=== PATIENT | male | born 1965 | race Caucasian/White ===

== ENCOUNTER 2017-07-05 11:22 | Day surgery (SDC) | payer MEDICAID, SELFPAY ==
[2017-07-05 12:00] VITALS: BP 135/83; PULSE 60; RESP 16; TEMP 36.8; O2SAT 100; BMI 26.4
[2017-07-05 12:01] LABS: Bedside Glucose 79 mg/dL (70-110)
[2017-07-05 14:17] VITALS: BP 135/83; BP 145/94; PULSE 63; RESP 16; TEMP 37; O2SAT 100
[2017-07-05 14:22] VITALS: BP 135/83; BP 159/90; PULSE 61; RESP 16; O2SAT 100
[2017-07-05 14:27] VITALS: BP 135/83; BP 164/85; PULSE 60; RESP 16; O2SAT 100
[2017-07-05 14:30] LABS: Bedside Glucose 60 mg/dL (70-110)
[2017-07-05 14:32] VITALS: BP 135/83; BP 163/99; PULSE 64; RESP 16; TEMP 36.8; O2SAT 100
[2017-07-05 14:55] VITALS: BP 135/83
--- NOTE | 2017-07-10 09:06 | OP.PCM_ITS ---
Report of Operation Date of Procedure: 07/05/17 Pre-Operative Diagnosis: screening for colon cancer Post-Operative Diagnosis: same Surgery/Procedure Performed:: colonoscopy Description of Surgical Findings:: normal colon Type of Anesthesia:: MAC Anesthesiologist: Kemal Evangelista Specimen's removed: none Estimated Blood Loss (mL): none Fluids Replaced: see anesthesia note Description of Procedure: Patient presents for screening for colon cancer via colonoscopy. He states that he never has had a colonoscopy previously. After informed consent was given, the patient was brought to the endoscopy suite and placed in the supine position. Appropriate time out protocol was followed. Appropriate cardiac, blood pressure, and pulse oximetry monitoring was placed. After stable vital signs were noted, the patient was given intravenous conscious sedation. The patient was then placed in the left lateral decubitis position. The colonoscope was lubricated and carefully inserted into the patient?s anus. It was then advanced into the rectum, then into the sigmoid colon, then into the left descending colon, past the splenic flexure, into the transverse colon, past the hepatic flexure, then down into the right descending colon and into the cecum. The cecum was identified by: confluence of the tenae coli, identification of the ileocecal valve and appendiceal orifice, and external pressure with indentation. At this point, the colonoscope was slowly retracted back and the entire colonic mucosa was examined. The colon cleansing preparation was adequate. There was no evidence of extrinsic compression and no inflammatory changes were noted. No intraluminal obstructing lesions, no strictures, and no ulcers were noted. Retroflex view in the rectum revealed no lesions in the rectal vault. The colonoscope was removed intact. No complications were noted during the procedure. Recommendations: screening colonoscopy in 10 years - Complications none noted - Admit VTE Documentation VTE Present on Admission: No - low risk procedure for DVT/PE
== END 2017-07-05 14:55 | disposition home or self-care (01) ==
LOC: EN 11:22 → AC 11:25
PROVIDERS: Family Provider Family Medicine; PCP Family Medicine; Visit Provider Surgery
PROC: 0DJD8ZZ Inspection of Lower Intestinal Tract, Via Natural or Artificial Opening Endoscopic (ICD-10-PCS; CPT 45378; principal; 2017-07-05 12:40)
DX: Z12.11 Encounter for screening for malignant neoplasm of colon (principal); I10 Essential (primary) hypertension; G47.30 Sleep apnea, unspecified; F31.9 Bipolar disorder, unspecified; F32.9 Major depressive disorder, single episode, unspecified; F41.0 Panic disorder [episodic paroxysmal anxiety]; E78.00 Pure hypercholesterolemia, unspecified; K21.9 Gastro-esophageal reflux disease without esophagitis; Z79.82 Long term (current) use of aspirin; Z79.899 Other long term (current) drug therapy; Z95.810 Presence of automatic (implantable) cardiac defibrillator; E11.9 Type 2 diabetes mellitus without complications; Z79.84 Long term (current) use of oral hypoglycemic drugs
CPT/HCPCS: 45378; 82962; J7120; J2405

== ENCOUNTER 2018-01-13 15:32 | Emergency (ER) | payer MEDICAID, SELFPAY ==
[2018-01-13 15:33] VITALS: BP 151/95; PULSE 71; RESP 16; TEMP 37.5; O2SAT 100; BMI 26.7
--- NOTE | 2018-01-13 15:43 | EKG12_ITS ---
Test Reason : CHEST TIGHTNESS Blood Pressure : / mmHG Vent. Rate : 066 BPM Atrial Rate : 066 BPM P-R Int : 176 ms QRS Dur : 110 ms QT Int : 416 ms P-R-T Axes : 072 144 078 degrees QTc Int : 436 ms Normal sinus rhythm Normal ECG Confirmed by ALIYAH ROCHE, MYNOR ([id number]), rewrite editor LOREN MERCADO ([id number] on 01/15/2018 10:14:50 AM Referred By: CASSIE/RACHEL Confirmed By:MYNOR LY MD
--- NOTE | 2018-01-13 16:10 | RAD_ITS ---
STUDY: X-RAY CHEST REASON FOR EXAM: Male, 52 years old. Chest pain TECHNIQUE: Frontal and lateral views of the chest COMPARISON: 02/25/2016 FINDINGS: The lungs are clear. There are no pleural effusions. There is no pneumothorax. The heart is normal in size. Again noted is a pacemaker. The visualized osseous structures are within normal limits. RAD/Chest PA and Lateral IMPRESSION: No acute thoracic pathology. Electronically Signed: Presley Whitlock, at 16:32 EDT Tel , Service support ,
--- NOTE | 2018-01-13 16:10 | RAD_ITS ---
STUDY: X-RAY - CERVICAL SPINE REASON FOR EXAM: Male, 52 years old. Pain TECHNIQUE: 3 view(s) of the cervical spine were obtained. COMPARISON: None FINDINGS: There is no evidence of fracture or dislocation in the cervical spine. The dens is intact. There are moderate degenerative changes which are more pronounced in the lower cervical spine. The prevertebral soft tissues are unremarkable. There is no radiodense foreign body. RAD/Cerv Spine 2 or 3 Views IMPRESSION: No fracture or dislocation in the cervical spine. Moderate degenerative changes which are more pronounced in the lower cervical spine. Electronically Signed: Presley Whitlock, at 16:34 EDT Tel , Service support ,
[2018-01-13] MEDS: diazePAM 5 MG Tablet PO (16:18)
[2018-01-13 16:50] VITALS: BP 169/97; PULSE 76; RESP 16; O2SAT 99
--- NOTE | 2018-01-13 17:53 | ED.VISSUMM ---
- ER Visit Summary Date of Service: 01/13/18 Chief Complaint: The chief complaint is chest pain, however patient is complaining of left shoulder and back pain. History of Present Illness: The patient is a 52 M with above complaints for about 2-3 days. Unknown mechanism of injury, but he has quite a bit of pain when he moves his arm, he is quite a bit of thoracic and lower neck spasms. No midline neck pain. No injury. He has no loss of strength or paresthesias. No bowel or bladder compromise. Pain is minimal when at rest but worse with movement of the neck, or shoulder. Physical Examination: Not appear in acute distress. Moist mucous membranes, no obvious facial deformity No C-spine tenderness supple neck. He does have paraspinal neck spasm and tenderness with movement Regular rate and rhythm without any obvious murmurs. Pacemaker on the left noticed. Clear lungs bilaterally speaking in full sentences without any obvious respiratory distress Abdomen soft and nontender no guarding or rebound He has trapezius spasm as well as tenderness in the posterior shoulder region, quite reproducible and mechanical. Neurovascularly intact normal strength and sensation. Skin does not show any obvious rashes or lesions, no trauma. Alert oriented ?3 with no gross focal deficit Emergency Department Course and Treatment: X-ray of the C-spine and chest are unremarkable, patient has a pacemaker but may need further imaging of the C-spine at this time he does not have any neurological symptoms. He was given muscle relaxants with significant improvement I will discharge him with reassurance and medications. Discharge stable condition Impression: [Thoracic strain] This note was generated with [employer] dictation software. It may contain incorrect words, spelling, and punctuation that were not noted in review of the chart prior to signing ED Disposition - Plan for ED Patient: Disposition: Home or Assisted Living Chief Complaint: Other, Pain/Inj Instructions: ED Sprain Thoracic Spine Prescriptions: Cyclobenzaprine [Flexeril] 10 mg PO TID PRN #20 tab PRN Reason: Muscle Spasm Referrals: Michael Solis MD [Primary Care Provider] - 3-5 Days
--- NOTE | 2018-01-13 17:57 | ED.DCSUM_ITS ---
- ER Visit Summary Date of Service: 01/13/18 Chief Complaint: The chief complaint is chest pain, however patient is complaining of left shoulder and back pain. History of Present Illness: The patient is a 52 M with above complaints for about 2-3 days. Unknown mechanism of injury, but he has quite a bit of pain when he moves his arm, he is quite a bit of thoracic and lower neck spasms. No midline neck pain. No injury. He has no loss of strength or paresthesias. No bowel or bladder compromise. Pain is minimal when at rest but worse with movement of the neck, or shoulder. Physical Examination: Not appear in acute distress. Moist mucous membranes, no obvious facial deformity No C-spine tenderness supple neck. He does have paraspinal neck spasm and tenderness with movement Regular rate and rhythm without any obvious murmurs. Pacemaker on the left noticed. Clear lungs bilaterally speaking in full sentences without any obvious respiratory distress Abdomen soft and nontender no guarding or rebound He has trapezius spasm as well as tenderness in the posterior shoulder region, quite reproducible and mechanical. Neurovascularly intact normal strength and sensation. Skin does not show any obvious rashes or lesions, no trauma. Alert oriented ?3 with no gross focal deficit Emergency Department Course and Treatment: X-ray of the C-spine and chest are unremarkable, patient has a pacemaker but may need further imaging of the C- spine at this time he does not have any neurological symptoms. He was given muscle relaxants with significant improvement I will discharge him with reassurance and medications. Discharge stable condition Impression: [Thoracic strain] This note was generated with [employer] dictation software. It may contain incorrect words, spelling, and punctuation that were not noted in review of the chart prior to signing ED Disposition - Plan for ED Patient: Disposition: Home or Assisted Living Chief Complaint: Other, Pain/Inj Instructions: ED Sprain Thoracic Spine Prescriptions: Cyclobenzaprine [Flexeril] 10 mg PO TID PRN #20 tab PRN Reason: Muscle Spasm Referrals: Michael Solis MD [Primary Care Provider] - 3-5 Days
--- NOTE | 2018-01-13 17:59 | ED.DEP ---
ED Disposition - Plan for ED Patient: Disposition: Home or Assisted Living Chief Complaint: Other, Pain/Inj Instructions: ED Sprain Thoracic Spine Prescriptions: Cyclobenzaprine [Flexeril] 10 mg PO TID PRN #20 tab PRN Reason: Muscle Spasm Referrals: Michael Solis MD [Primary Care Provider] - 3-5 Days
[2018-01-13 18:14] VITALS: BP 149/88; PULSE 67; RESP 18; O2SAT 99
== END 2018-01-13 18:15 | disposition home or self-care (01) ==
PROVIDERS: Emergency Provider Emergency Medicine; Family Provider Family Medicine; PCP Family Medicine
DX: S29.012A Strain of muscle and tendon of back wall of thorax, initial encounter (principal); X58.XXXA Exposure to other specified factors, initial encounter; Y93.9 Activity, unspecified; Y92.9 Unspecified place or not applicable; M25.512 Pain in left shoulder; R07.9 Chest pain, unspecified; I10 Essential (primary) hypertension; E11.9 Type 2 diabetes mellitus without complications; Z79.84 Long term (current) use of oral hypoglycemic drugs; Z79.82 Long term (current) use of aspirin; Z79.899 Other long term (current) drug therapy
CPT/HCPCS: 71046; 72040; 93005; 99283

== ENCOUNTER 2021-11-13 06:47 | Emergency (ER) | payer BC, MEDICAID, SELFPAY ==
[2021-11-13 06:48] VITALS: BP 153/90; PULSE 88; RESP 18; TEMP 36.8; O2SAT 98; BMI 29.7
--- NOTE | 2021-11-13 07:02 | EKG12_ITS ---
Test Reason : FATIGUE Blood Pressure : / mmHG Vent. Rate : 079 BPM Atrial Rate : 079 BPM P-R Int : 188 ms QRS Dur : 108 ms QT Int : 398 ms P-R-T Axes : 066 118 054 degrees QTc Int : 456 ms Normal sinus rhythm Normal ECG Confirmed by ALIYAH ROCHE, MYNOR ([id number]), supervising editor trailer EFRAIN MACK ([id number]) on 11/14/2021 1:30:14 PM Referred By: BB Confirmed By:MYNOR LY MD
--- NOTE | 2021-11-13 07:02 | RAD_ITS ---
STUDY: X-RAY CHEST REASON FOR EXAM: Male, 56 years old. Cough sob TECHNIQUE: Single AP portable view of the chest. COMPARISON: Comparison is made with prior examination dated 01/13/2018. FINDINGS: Patchy infiltrate in the right lower lobe. Mild increased markings at the left lung base. There is no demonstrated pleural abnormality. Normal size heart. A left-sided dual-chamber pacemaker is seen. Normal mediastinum and kunal. Normal visualized pulmonary arteries. Normal visualized aortic arch and descending thoracic aorta. There are degenerative changes of the visualized thoracic spine. Normal visualized ribs, clavicles, and shoulders. There is no demonstrated abnormality of the visualized soft tissue structures of the upper abdomen. RAD/Chest 1 View (Portable) IMPRESSION: Bibasilar pulmonary infiltrates worse on the right lung base. Electronically Signed: Mack Bell MD at 8:04 EDT ,
--- NOTE | 2021-11-13 07:04 | CT_ITS ---
EXAM: CT HEAD WITHOUT INTRAVENOUS CONTRAST CLINICAL INDICATION: dysequilibrium, headache TECHNIQUE: Multiple axial images were obtained of the head without intravenous contrast. This CT exam was performed using one or more of the following dose reduction techniques: automated exposure control, adjustment of the mA and/or kV according to patient size, and/or use of iterative reconstruction technique. This report was created using [employer] report generation technology. COMPARISON: 02/25/2016 FINDINGS: BRAIN AND EXTRA-AXIAL SPACES: Unremarkable. No intra- or extra-axial hemorrhage. No evidence of acute infarct. No intracranial mass or mass effect. There is preservation of the yang/white matter interface. Posterior fossa structures are unremarkable. Ventricles are appropriate for age. No hydrocephalus. Basal cisterns are patent. BONES/JOINTS: Unremarkable. No discrete lytic or blastic abnormalities. SINUSES: Unremarkable as visualized. Clear. MASTOID AIR CELLS: Unremarkable. Clear. ORBITS: Visualized globes, extraocular muscles, optic nerves and retrobulbar fat appear unremarkable. CT/Brain/Head without Contrast IMPRESSION: Negative head/brain CT without intravenous contrast. There has been no change from reference exam. Electronically Signed: Renzo Colón MD at 8:06 EDT ,
[2021-11-13] MEDS: 0.9% Normal Saline 1,000 ML 150 ML IV (07:05)
--- NOTE | 2021-11-13 07:05 | EX.ED.DYSGE1 ---
HPI History of Present Illness Chief Complaint: Fatigue Informant: patient Onset/Context/Timing Onset: Days (3) Context: Gradual Onset Timing: Continuous Quality: fatigue Location: all over Current Severity: Severe Maximum Severity: Severe Worsened by: doing things Relieved by: nothing Associated Symptoms Associated Symptoms: see below Associated Symptoms ED: cough Narrative Narrative: Patient presents with about 3 days of generalized fatigue, myalgias/arthralgias, dyspnea at times including exertion, minor cough, disequilibrium like he is off balance, in addition to lightheadedness, and a headache. He states he works at [employer] in [employer]. No contact with [employer] that he knows of which has been around lately, he is vaccinated and boosted. He states he is scheduled for an upcoming liver biopsy because he has stage III or IV hepatic fibrosis and he has never had a biopsy of it, he has not been diagnosed with cirrhosis; in preparation for the biopsy, he states he has paused some medications including his aspirin and diabetes medication. He denies any jaundice, abdominal pain, vomiting, diarrhea, he was concerned may be some pizza that he ate near the time of onset might of been the cause of this. He is feeling no better today on Saturday so he presents to the emergency department. [facility] Medical History (Updated 11/13/21 @ 13:[address] Kt Salgado MD) Depression Diabetes type 2, uncontrolled HTN (hypertension) Hyperlipidemia Home Medications losartan 50 mg PO BID 10/25/15 [History Last Taken 07/05/17 07:30] omega-3 fatty acids-fish oil 2 ea PO BID 10/25/15 [History Last Taken 11/28/15 06:00] pantoprazole 40 mg PO DAILY 10/25/15 [History Last Taken 07/05/17 07:30] finasteride 5 mg PO QHS 11/28/15 [History Last Taken 07/05/17 07:30] aspirin 81 mg PO DAILY@0800 02/18/16 [History Last Taken Unknown] alogliptin 25 mg PO DAILY 05/22/17 [History Last Taken Unknown] citalopram [Celexa] 20 mg PO QHS 05/22/17 [History Last Taken 07/05/17 07:30] lamotrigine [Lamictal] 75 mg PO DAILY 05/22/17 [History Last Taken 07/05/17 07:30] metformin 500 mg PO DAILY 05/22/17 [History Last Taken Unknown] cyclobenzaprine 10 mg PO TID PRN #20 tab 01/13/18 [Rx Last Taken Unknown] levofloxacin 750 mg PO DAILY #4 tab 11/13/21 [Rx Last Taken Unknown] Allergy/AdvReac Type Severity Reaction Status Date / Time propofol Allergy PROJECTILE Verified 01/13/18 16:06 VOMITING simvastatin Allergy Unknown Verified 01/13/18 16:06 lisinopril AdvReac CONGESTION Verified 01/13/18 16:06 Surgical History Status post placement of cardiac pacemaker Social History Smoking Status: Never smoker ROS ROS ED Constitutional Constitutional ED: Reports body ache(s), fatigue, headache(s) and malaise; Denies chills or fever(s) Eyes Eyes: Denies change in vision or diplopia ENT ENT ED: Denies rhinorrhea or sore throat Cardiovascular Cardiovascular: Reports fatigue and lightheadedness; Denies chest pain or palpitations Respiratory/Chest Respiratory/Chest: Reports cough, dyspnea and dyspnea on exertion Gastrointestinal Gastrointestinal: Denies abdominal pain, diarrhea, nausea or vomiting Genitourinary Genitourinary ED: Denies dysuria or hematuria Musculoskeletal Musculoskeletal: Reports arthralgias, myalgias and other Details: Patient states his joints hurt mostly his right elbow and wrist ; Denies back pain or neck pain Integumentary Denies abscess or rash Neurologic Neurologic: Reports headache(s); Denies paresthesias or weakness Psychiatric Psychiatric: Denies anxiety or suicidal thoughts Endocrine Endocrinology: Reports polyuria; Denies heat intolerance or palpitations EXAM Physical Exam Const Vital Signs: 11/13/21 06:48 11/13/21 06:57 11/13/21 08:43 Temperature 98.2 F Temperature Source Oral Pulse Rate 88 76 Respiratory Rate 18 25 H Respiratory Effort Normal Non-Labored Respiratory Pattern Normal Blood Pressure 153/90 H 142/84 H Blood Pressure Mean 111 103 Pulse Ox 98 98 Oxygen Delivery Method Room Air Room Air 11/13/21 10:00 11/13/21 10:59 11/13/21 12:00 Temperature Temperature Source Pulse Rate 72 69 67 Respiratory Rate 20 H 18 18 Respiratory Effort Respiratory Pattern Blood Pressure 129/80 H 123/76 H 128/76 H Blood Pressure Mean 96 91 93 Pulse Ox 97 96 97 Oxygen Delivery Method Room Air Room Air Room Air Positive well nourished and well developed Constitutional Narrative: Well-appearing, no distress General Appearance ED: well developed and NAD HEENT Reports moist mucous membranes normocephalic and atraumatic Eyes PERRL and EOMs intact bilaterally Neck full ROM, no lymphadenopathy, supple and no meningeal signs Resp normal respiratory effort and clear to auscultation bilaterally Effort and Inspection: able to speak in complete sentences Cardio regular rate, regular rhythm and no murmurs Rate: Negative for tachycardic GI non-tender and non-distended Auscultation: normoactive bowel sounds Palpation: soft Back/Spine no CVA tenderness General Back: other FROM Extremity normal to inspection and no calf tenderness General Extremety ED: Negative for edema, pulses abnormal or tenderness General Extremity: Negative for edema or pulses abnormal Neuro oriented x3, CN's II-XII intact bilaterally and no sensory deficits noted Sensorium / Orientation: awake and alert Motor Exam: strength 5/5 throughout Skin no rashes or lesions noted and no wounds MDM MDM MDM Narrative Medical decision making narrative: Patient's blood sugar is 733, along with PARVEEN, pseudohyponatremia, significant glycosuria. The rest of his labs are okay, his chest x-ray shows some patchy pneumonia, he is not hypoxic. I confirmed with the patient that he stopped his diabetes medicines and states he was pretty sure they told him to do this in preparation for his liver biopsy. His biopsy is the day after tomorrow. I discussed with Dr. Stanton, patient thought this was the GI doctor who told him to stop the medications but in actuality this is the physician at [facility] who is performing the procedure in 2 days, he states typically they have the patient cut their insulin dose in half and hold their oral diabetes medications only the morning of the procedure. I discussed this with the patient, I think he was confused on the instructions. I think this is the reason his blood sugar is so high. I gave him 30 units of insulin IV as well as 2 L of fluid, after this his blood sugar came down to the 300s, he felt much better and a lot of his symptoms resolved, suggesting hyperglycemia is the cause of his symptoms. Additionally, his 1 view chest x-ray on my interpretation appears to have a mild/small infiltrate in the right base, radiology agrees and additionally adds that he has small infiltrates in the left base as well. His COVID and influenza returned negative, he has been coughing and having some mild dyspnea, but his oxygenation is excellent. I will start him on Levaquin, his states she recently was diagnosed with walking pneumonia and now she is better and concerned maybe she gave it to him. I am not sure that is the case but regardless I do not think he needs to be admitted for this right now, will prescribe him 4 more days of Levaquin 750 and he will follow-up doing the instructions above as a [facility] for his biopsy coming up. After the insulin and monitoring, we got his blood sugar down. At 0950, 312. At 1100, 263. At 1220, 252. And now 230. We let him eat a couple cookies, he is feeling a lot better, and we discussed the instructions for his medications. Lab Data Attestation: I reviewed the patient's lab results. Labs: Laboratory Results - last 24 hr 11/13/21 11/13/21 11/13/21 07:00 07:00 07:00 WBC 8.8 RBC 5.24 Hgb 13.1 Hct 40.8 MCV 77.9 L MCH 25.0 L MCHC 32.1 RDW Std Deviation 39.4 RDW Coeff of Germán 14.1 Plt Count 270 MPV 10.9 Immature Gran % (Auto) 0.600 Neut % (Auto) 70.1 H Lymph % (Auto) 17.2 L Stokes % (Auto) 8.9 Eos % (Auto) 2.9 Baso % (Auto) 0.3 Absolute Neuts (auto) 6.2 Absolute Lymphs (auto) 1.52 Nucleated RBC % 0 Sodium 126 L Potassium 3.7 Chloride 92 L Carbon Dioxide 27.0 Anion Gap 7 BUN 20 H Creatinine 1.47 H Estim Creat Clear Calc 61.59 Est GFR (MDRD) Af Amer 64 Est GFR (MDRD) Non-Af 53 L BUN/Creatinine Ratio 13.6 Glucose 733 H* Calcium 8.7 Total Bilirubin 0.60 AST 39 H ALT 82 H Alkaline Phosphatase 192 H Troponin I High Sens < 3 L Total Protein 7.9 Albumin 3.1 L Globulin 4.8 H Albumin/Globulin Ratio 0.6 L Urine Color Yellow Urine Clarity Clear Urine pH 6.5 Ur Specific [place] 1.015 Urine Protein Negative Urine Glucose (UA) 1000 H Urine Ketones Negative Urine Occult Blood Negative Urine Nitrite Negative Urine Bilirubin Negative Urine Urobilinogen Normal Ur Leukocyte Esterase Negative Urine RBC 0 SEEN Urine WBC 0 SEEN Ur Squamous Epith Cells 0 SEEN Urine Bacteria 0 SEEN Urine Mucus 0 SEEN Acetone Level POC Glucose 11/13/21 11/13/21 11/13/21 09:49 10:58 12:22 WBC RBC Hgb Hct MCV MCH MCHC RDW Std Deviation RDW Coeff of Germán Plt Count MPV Immature Gran % (Auto) Neut % (Auto) Lymph % (Auto) Stokes % (Auto) Eos % (Auto) Baso % (Auto) Absolute Neuts (auto) Absolute Lymphs (auto) Nucleated RBC % Sodium Potassium Chloride Carbon Dioxide Anion Gap BUN Creatinine Estim Creat Clear Calc Est GFR (MDRD) Af Amer Est GFR (MDRD) Non-Af BUN/Creatinine Ratio Glucose Calcium Total Bilirubin AST ALT Alkaline Phosphatase Troponin I High Sens Total Protein Albumin Globulin Albumin/Globulin Ratio Urine Color Urine Clarity Urine pH Ur Specific [place] Urine Protein Urine Glucose (UA) Urine Ketones Urine Occult Blood Urine Nitrite Urine Bilirubin Urine Urobilinogen Ur Leukocyte Esterase Urine RBC Urine WBC Ur Squamous Epith Cells Urine Bacteria Urine Mucus Acetone Level POC Glucose 312 H 263 H 252 H 11/13/21 11/13/21 13:15 Unknown WBC RBC Hgb Hct MCV MCH MCHC RDW Std Deviation RDW Coeff of Germán Plt Count MPV Immature Gran % (Auto) Neut % (Auto) Lymph % (Auto) Stokes % (Auto) Eos % (Auto) Baso % (Auto) Absolute Neuts (auto) Absolute Lymphs (auto) Nucleated RBC % Sodium Potassium Chloride Carbon Dioxide Anion Gap BUN Creatinine Estim Creat Clear Calc Est GFR (MDRD) Af Amer Est GFR (MDRD) Non-Af BUN/Creatinine Ratio Glucose Calcium Total Bilirubin AST ALT Alkaline Phosphatase Troponin I High Sens Total Protein Albumin Globulin Albumin/Globulin Ratio Urine Color Urine Clarity Urine pH Ur Specific [place] Urine Protein Urine Glucose (UA) Urine Ketones Urine Occult Blood Urine Nitrite Urine Bilirubin Urine Urobilinogen Ur Leukocyte Esterase Urine RBC Urine WBC Ur Squamous Epith Cells Urine Bacteria Urine Mucus Acetone Level NEGATIVE POC Glucose 230 H Radiography Chest X-Ray - ED: 1 View, Read by ED Physician and Right Infiltrate Diagnostic Testing: Clinical Impression(s) from Imaging Studies Chest X-Ray 11/13/21 07:02 IMPRESSION: Bibasilar pulmonary infiltrates worse on the right lung base. Electronically Signed: Mack Bell MD at 8:04 EDT , Brain CT 11/13/21 07:04 IMPRESSION: Negative head/brain CT without intravenous contrast. There has been no change from reference exam. Electronically Signed: Renzo Colón MD at 8:06 EDT , Rhythm Strip Rhythm Strip: Sinus Rhythm Rate: 80 Ectopy: None EKG Initial EKG: Attestation: I personally reviewed and interpreted this EKG as follows: Interpretation: Sinus Rhythm and No Acute Injury Pattern Comments: Normal EKG Discharge Plan Triage Chief Complaint: Fatigue ED Provider: Kt Salgado Dx/Rx/DC Orders Clinical Impression: Severe hyperglycemia due to diabetes mellitus, Pneumonia Instructions: ED Diabetic Hyperglycemia, ED Pneumonia (Adult) Prescriptions: New levofloxacin 750 mg tablet 750 mg PO DAILY Qty: 4 RF: 0 Continued pantoprazole 40 MG tablet 40 mg PO DAILY RF: 0 losartan 100 MG tablet 50 mg PO BID RF: 0 omega-3 fatty acids-fish oil 1 EACH capsule 2 ea PO BID RF: 0 finasteride 5 MG tablet 5 mg PO QHS RF: 0 aspirin 81 MG tablet,chewable 81 mg PO DAILY@0800 RF: 0 cyclobenzaprine 10 MG tablet 10 mg PO TID PRN (Reason: Muscle Spasm) Qty: 20 RF: 0 lamotrigine [Lamictal] 25 MG tablet 75 mg PO DAILY RF: 0 alogliptin 25 MG tablet 25 mg PO DAILY RF: 0 metformin 500 MG tablet,ER luis.retention 24 hr 500 mg PO DAILY RF: 0 Held citalopram [Celexa] 20 MG tablet 20 mg PO QHS RF: 0 Hold Instructions: Resume on 11/22/21. while on antibiotic and for next 4-5 days due to possible interaction Primary Care Provider: Michael Solis Referrals: Michael Solis MD [Primary Care Provider] - 3-5 Days Activity Restrictions/Additional Instructions: Continue taking your diabetes medications as prescribed; the day after tomorrow when you have your biopsy, do not take your diabetes medications in the morning only due to not being allowed to eat prior to your procedure, BUT YOU MAY still take your metformin, it will not drop your blood sugar but will keep you from going high. Just with a sip of water. Disposition Disposition: Home, Self Care
[2021-11-13 07:18] LABS: Bacteria 0 SEEN /hpf (None Seen); Mucous, Urine 0 SEEN /hpf (<or=2+); Red Blood Cells-Urine 0 SEEN /hpf (0-5); Squamous Epithelial Cells - UA 0 SEEN /hpf (0-5); White Blood Cells 0 SEEN /hpf (0-5)
[2021-11-13 07:21] LABS: Absolute Lymphocyte Count 1.52 X10^3/uL (0.83-4.51); Absolute Neutrophil Count 6.2 X10^3/uL (2.0-7.7); Basophil# 0.03 X10^3/uL; Basophil% 0.3 % (0-1); Eosinophil# 0.26 X10^3/uL; Eosinophils% 2.9 % (0-5); Hematocrit 40.8 % (40-54); Hemoglobin 13.1 g/dL (13.0-16.5); Lymphocyte # 1.52 X10^3/ul (0.83-4.51); Lymphocyte % 17.2 % (19-41); Mean Corp Hgb Conc 32.1 g/dL (32-36); Mean Corpuscular Volume 77.9 fL (80-94); Mean Platelet Vol. 10.9 fl (6.2-12.0); Monocyte# 0.79 X10^3/uL; Monocyte% 8.9 % (0-10); NRBC Flagged by Analyzer 0 % (0-5); Neutrophil # 6.18 X10^3/uL (2.7-7.7); Neutrophil % 70.1 % (47-70); Platelet Count 270 K/mm3 (150-450); RBC Distribution Width CV 14.1 % (11.6-14.6); RBC Distribution Width SD 39.4 fl (35.1-43.9); Red Blood Count 5.24 M/mm3 (4.6-6.2); White Blood Count 8.8 K/mm3 (4.4-11.0)
--- NOTE | 2021-11-13 07:42 | ED.RN ---
PT BLOOD SUGAR 733 PER LAB
[2021-11-13 07:43] LABS: ALB/GLOB Ratio 0.6 RATIO (0.9-2.4); AST(SGOT) 39 U/L (15-37); Alanine Aminotransfer ALT/SGPT 82 U/L (16-61); Albumin, Serum 3.1 g/dL (3.2-5.0); Alkaline Phosphatase 192 U/L (45-117); Anion Gap 7 (5-15); BUN 20 mg/dL (7-18); BUN/Creat Ratio 13.6 RATIO (10-20); Calcium,Total 8.7 mg/dL (8.5-10.1); Chloride 92 mmol/L (98-107); Creatinine, Serum 1.47 mg/dL (0.70-1.30); EST Glomerular Filtration Rate 53 mL/min (>60); Est Glom Filt Rate - Afr Amer 64 mL/min (>60); Estimated Creatinine Clearance 61.59 ml/min; Globulin 4.8 g/dL (2.2-4.2); Glucose 733 mg/dL (74-106); Potassium 3.7 mmol/L (3.5-5.1); Protein, Total 7.9 g/dL (6.4-8.2); Sodium Level 126 mmol/L (136-145); Troponin-I HS < 3 pg/mL (3.0-78.0)
[2021-11-13 08:15] LABS: Color, Urine Yellow (Yellow); Glucose, Dipstick 1000 mg/dl (Normal); Ketone-Dipstick Negative (Negative); Leukocyte Esterase-Dipstick Negative /ul (Negative); Nitrite-Dipstick Negative (Negative); Occult Blood-Urine Negative /ul (Negative); Protein-Dipstick Negative (Negative); Specific Gravity, Urine 1.015 (1.002-1.030); Urine Bilirubin Dipstick Negative (Negative); Urine Clarity Clear (Clear); Urine Urobilinogen Normal (Normal); Urine pH 6.5 (5.0 - 8.0)
[2021-11-13] MEDS: Ketorolac 15 MG/ML Vial IV (08:23)
[2021-11-13] MEDS: 0.9% Normal Saline 1,000 ML 999 ML IV (08:28)
[2021-11-13 08:43] VITALS: BP 142/84; PULSE 76; RESP 25; O2SAT 98
[2021-11-13 09:55] LABS: Bedside Glucose 312 mg/dL (74-106)
[2021-11-13 10:00] VITALS: BP 129/80; PULSE 72; RESP 20; O2SAT 97
--- NOTE | 2021-11-13 10:09 | NURSING ---
PAGED DR NICOLLE MIRANDA. HE WILL HAVE TO CALL BACK [phone]
[2021-11-13 10:59] VITALS: BP 123/76; PULSE 69; RESP 18; O2SAT 96
[2021-11-13] MEDS: levoFLOXacin IV 750 MG/150 ML BAG 100 MG IV (11:00)
[2021-11-13 11:10] LABS: Bedside Glucose 263 mg/dL (74-106)
[2021-11-13 12:00] VITALS: BP 128/76; PULSE 67; RESP 18; O2SAT 97
[2021-11-13 12:26] LABS: Bedside Glucose 252 mg/dL (74-106)
[2021-11-13 13:21] LABS: Bedside Glucose 230 mg/dL (74-106)
[2021-11-13 13:52] VITALS: BP 114/82
== END 2021-11-13 13:53 | disposition home or self-care (01) ==
PROVIDERS: Emergency Provider Emergency Medicine; PCP Family Medicine; Visit Provider Emergency Medicine
DX: E11.65 Type 2 diabetes mellitus with hyperglycemia (principal); J18.9 Pneumonia, unspecified organism; Z95.0 Presence of cardiac pacemaker
CPT/HCPCS: 70450; 71045; 80053; 81001; 82009; 82962; 84484; 85025; 87428; 93005; 96365; 96366; 96375; 99283; J7030; J7050; A4216

== ENCOUNTER 2024-05-04 17:38 | Emergency (ER) | payer MEDICAID, SELFPAY ==
[2024-05-04 17:39] VITALS: BP 136/94; PULSE 67; RESP 16; TEMP 36.3; O2SAT 100; BMI 24.9
--- NOTE | 2024-05-04 18:12 | EDS_ITS ---
HPI History of Present Illness Chief Complaint: Dizziness Informant: patient Onset/Context/Timing Onset: - (1 year) Context: Gradual Onset Timing: Intermittent Quality: Lightheaded, brain fog Location: Generalized Worsened by: Nothing Relieved by: Nothing Narrative Narrative: Patient presents with dizziness that has been intermittent over the last year. Patient states that he has also been having problems with his blood pressure. Patient states that sometimes it gets too high sometimes he gets too low. Patient states he has been working with his primary care physician to adjust his blood pressure medications. Patient states that his dizziness feels like he is lightheaded and brain fog. Patient states this is generalized. Patient states nothing makes it better and nothing makes it worse. Patient admits to some subjective chills but denies any fevers. Patient denies any chest pain or shortness of breath. Patient denies any nausea or vomiting. Patient denies any diaphoresis. [facility] Medical History (Updated 05/04/24 @ 21:[address] Fernando Aranda, DO) Depression HTN (hypertension) Diabetes type 2, uncontrolled Hyperlipidemia Home Medications ?Medication ?Instructions ?Recorded ?Last Taken ?Type losartan 100 mg tablet 50 mg PO BID 10/25/15 07/05/17 07:30 History omega-3 fatty acids-fish oil 360 2 ea PO BID 10/25/15 11/28/15 06:00 History mg-1,200 mg capsule pantoprazole 40 mg tablet,delayed 40 mg PO DAILY 10/25/15 07/05/17 07:30 History release finasteride 5 mg tablet 5 mg PO QHS 11/28/15 07/05/17 07:30 History aspirin 81 mg chewable tablet 81 mg PO DAILY@0800 02/18/16 Unknown History alogliptin 25 mg tablet 25 mg PO DAILY DIABETES 05/22/17 Unknown History citalopram 20 mg tablet (Celexa) 20 mg PO QHS 05/22/17 07/05/17 07:30 History lamotrigine 25 mg tablet (Lamictal) 75 mg PO DAILY 05/22/17 07/05/17 07:30 History metformin 500 mg 24 hr 500 mg PO DAILY 05/22/17 Unknown History tablet,extended release (gastric retention) cyclobenzaprine 10 mg tablet 10 mg PO TID PRN Muscle Spasm #20 01/13/18 Unknown Rx tabs levofloxacin 750 mg tablet 750 mg PO DAILY #4 tabs 11/13/21 Unknown Rx Allergy/AdvReac Type Severity Reaction Status Date / Time propofol Allergy PROJECTILE Verified 05/04/24 17:39 VOMITING simvastatin Allergy Unknown Verified 05/04/24 17:39 lisinopril AdvReac CONGESTION Verified 05/04/24 17:39 Surgical History (Updated 05/04/24 @ 18:[address] Fernando Aranda DO) History of back surgery Status post placement of cardiac pacemaker Social History (Updated 05/04/24 @ 18:[address] Fernando Aranda, DO) Smoking Status: Never smoker alcohol intake: current alcohol intake frequency: a few times a month substance use type: does not use ROS ROS ED Constitutional Constitutional ED: Reports chills and subjective; Denies fever(s) Eyes Eyes: Denies blurry vision or change in vision ENT ENT ED: Denies rhinorrhea or sore throat Cardiovascular Cardiovascular: Denies chest pain or palpitations Respiratory/Chest Respiratory/Chest: Denies cough or dyspnea Gastrointestinal Gastrointestinal: Denies nausea or vomiting Genitourinary Genitourinary ED: Denies dysuria or hematuria Musculoskeletal Musculoskeletal: Denies back pain or neck pain Integumentary Denies abscess or rash Neurologic Neurologic: Denies headache(s) or weakness Allergic/Immunologic Allergic/Immunologic ED: Denies mouth swelling or urticaria EXAM Physical Exam Const Vital Signs: 05/04/24 17:39 05/04/24 18:49 05/04/24 19:38 Temperature 97.3 F L Temperature Source Temporal Pulse Rate 67 62 Pulse Rate [Lying] 60 Pulse Rate [Sitting (for 1 minute prior to obtaining)] 60 Pulse Rate [Standing (for 1 minute prior to obtaining)] 66 Respiratory Rate 16 18 Blood Pressure 136/94 H 151/87 H Blood Pressure [Lying] 150/81 H Blood Pressure [Sitting (for 1 minute prior to obtaining)] 147/82 H Blood Pressure [Standing (for 1 minute prior to obtaining)] 162/93 H Blood Pressure Mean 108 108 Blood Pressure Mean [Lying] 104 Blood Pressure Mean [Sitting (for 1 minute prior to obtaining)] 103 Blood Pressure Mean [Standing (for 1 minute prior to obtaining)] 116 Pulse Ox 100 99 Oxygen Delivery Method Room Air Room Air 05/04/24 21:00 Temperature Temperature Source Pulse Rate 62 Pulse Rate [Lying] Pulse Rate [Sitting (for 1 minute prior to obtaining)] Pulse Rate [Standing (for 1 minute prior to obtaining)] Respiratory Rate 18 Blood Pressure 144/80 H Blood Pressure [Lying] Blood Pressure [Sitting (for 1 minute prior to obtaining)] Blood Pressure [Standing (for 1 minute prior to obtaining)] Blood Pressure Mean 101 Blood Pressure Mean [Lying] Blood Pressure Mean [Sitting (for 1 minute prior to obtaining)] Blood Pressure Mean [Standing (for 1 minute prior to obtaining)] Pulse Ox 100 Oxygen Delivery Method Room Air Positive well nourished and well developed General Appearance ED: well developed and NAD HEENT Reports moist mucous membranes Neck supple and no JVD Resp normal respiratory effort and clear to auscultation bilaterally Cardio regular rate and regular rhythm GI non-tender and non-distended Palpation: soft Extremity normal to inspection Neuro oriented x3, CN's II-XII intact bilaterally and no sensory deficits noted Sensorium / Orientation: alert Motor Exam: strength 5/5 throughout Psych mental status grossly normal MDM MDM MDM Narrative Medical decision making narrative: Differential diagnosis includes hypertensive urgency, uncontrolled hypertension, electrolyte abnormality, cardiac dysrhythmia, cardiac ischemia, and anxiety. EKG will be obtained to assess for cardiac dysrhythmia and cardiac ischemia. Chest x-ray will be obtained to assess for widened mediastinum and pneumonia. CBC will be obtained to assess for leukocytosis and anemia. Basic metabolic profile will be obtained to assess for electrolyte abnormality and renal function. High-sensitivity troponin will be obtained to assess for cardiac ischemia. Lab Data Attestation: I reviewed the patient's lab results. Lab results narrative: CBC was reviewed and was within normal limits. Basic metabolic profile was reviewed and was within normal limits. High-sensitivity troponin was reviewed and was normal at 5. Labs: Laboratory Results - last 24 hr 05/04/24 18:30 WBC 8.8 RBC 4.66 Hgb 13.2 Hct 38.4 L MCV 82.4 MCH 28.3 MCHC 34.4 RDW Std Deviation 39.6 RDW Coeff of Germán 13.3 Plt Count 220 MPV 10.6 Immature Gran % (Auto) 0.300 Neut % (Auto) 52.6 Lymph % (Auto) 33.5 [place] % (Auto) 9.6 Eos % (Auto) 3.4 Baso % (Auto) 0.6 Absolute Neuts (auto) 4.6 Absolute Lymphs (auto) 2.96 Nucleated RBC % 0 Sodium 141 Potassium 4.1 Chloride 108 H Carbon Dioxide 31.0 Anion Gap 2 L BUN 11 Creatinine 0.93 Estim Creat Clear Calc 93.87 Est GFR (MDRD) Af Amer 107 Est GFR (MDRD) Non-Af 89 BUN/Creatinine Ratio 11.9 Glucose 86 Calcium 9.2 Troponin I High Sens 5 Radiography Chest X-Ray - ED: 2 View, Read by ED Physician, Read by Radiologist and No Acute Disease Diagnostic Testing: Clinical Impression(s) from Imaging Studies Chest X-Ray 05/04/24 18:30 IMPRESSION: Degenerative changes, as described above. No demonstrated acute cardiopulmonary process. Electronically Signed: Kt Caldera MD at 19:25 EST , PA and lateral chest x-ray was obtained. There are 2 views. On my independent interpretation, lung gonzalez are clear. There is normal cardiac silhouette. Bony thorax is normal. There is no acute process noted. Radiologist also interpreted the x-ray and agrees. EKG Initial EKG: Attestation: I personally reviewed and interpreted this EKG as follows: Interpretation: Sinus Rhythm (64) and No Acute Injury Pattern Comments: EKG was obtained. On my independent interpretation, it showed a normal sinus rhythm with a rate of 64. AL interval, QRS interval, and QTc intervals were all normal. [place] was normal. There are no acute ST or T wave changes. Prior EKG tracings: available for review Prior: Unchanged (11/13/2021) Treatment and Re-Evaluation :: Patient was advised of his findings. Patient blood pressure remained stable here in the emergency department. Patient was instructed to follow-up with his primary care physician in 5 to 7 days. Patient was instructed to continue to monitor his blood pressures. Patient was instructed to return if worse in any way. Patient understood and was agreeable with plan. All questions were answe red. Discharge Plan Triage Chief Complaint: Dizziness ED Provider: Fernando Aranda Dx/Rx/DC Orders Clinical Impression: Hypertension, Dizziness Instructions: ED Dizziness, Uncertain Cause, ED Hypertension, Established Prescriptions: No Action pantoprazole 40 MG tablet 40 mg PO DAILY Patient Comments: acid reflux losartan 100 MG tablet 50 mg PO BID Patient Comments: blood pressure omega-3 fatty acids-fish oil 1 EACH capsule 2 ea PO BID Patient Comments: supplement finasteride 5 MG tablet 5 mg PO QHS Patient Comments: prostate aspirin 81 MG tablet,chewable 81 mg PO DAILY@0800 Patient Comments: heart health cyclobenzaprine 10 MG tablet 10 mg PO TID PRN (Reason: Muscle Spasm) Qty: 20 0RF levofloxacin 750 mg tablet 750 mg PO DAILY Qty: 4 0RF Rx Instructions: start 11/14 lamotrigine [Lamictal] 25 MG tablet 75 mg PO DAILY citalopram [Celexa] 20 MG tablet 20 mg PO QHS alogliptin 25 MG tablet 25 mg PO DAILY metformin 500 MG tablet,ER luis.retention 24 hr 500 mg PO DAILY Patient Comments: diabetes Rx Instructions: hold x 48 hours Stand Alone Forms: ED Work / School Excuse Primary Care Provider: Michael Solis Referrals: Michael Solis MD [Primary Care Provider] - 5-7 Days Print Language: Pakistani Disposition Disposition: Home, Self Care
--- NOTE | 2024-05-04 18:20 | EKG12_ITS ---
Test Reason : DYSRHYTHMIA Blood Pressure : */* mmHG Vent. Rate : 64 BPM Atrial Rate : 64 BPM P-R Int : 194 ms QRS Dur : 100 ms QT Int : 410 ms P-R-T Axes : 63 103 76 degrees QTcB Int : 422 ms Normal sinus rhythm Rightward axis Borderline ECG Confirmed by Lc Davenport ([id number]), editor at large EFRAIN MACK ([id number]) on 05/05/2024 10:42:37 AM Referred By: Fernando Aranda Confirmed By: Lc Davenport
--- NOTE | 2024-05-04 18:30 | RAD_ITS ---
STUDY: X-RAY CHEST REASON FOR EXAM: Male, 59 years old. Hypertension TECHNIQUE: PA and lateral views of the chest. COMPARISON: November 13, 2021 FINDINGS: Dual chamber pacemaker device on the left is stable. The lungs are clear and expanded. There is no demonstrated pleural abnormality. Normal size heart. Normal mediastinum and kunal. Normal visualized pulmonary arteries. Normal visualized aortic arch and descending thoracic aorta. There are diffuse degenerative changes of the visualized thoracic spine. Normal visualized ribs, clavicles, and shoulders. There is no demonstrated abnormality of the visualized soft tissue structures of the upper abdomen. RAD/Chest PA and Lateral IMPRESSION: Degenerative changes, as described above. No demonstrated acute cardiopulmonary process. Electronically Signed: Kt Caldera MD at 19:25 EST ,
[2024-05-04 18:36] LABS: Absolute Lymphocyte Count 2.96 X10^3/uL (0.83-4.51); Absolute Neutrophil Count 4.6 X10^3/uL (2.0-7.7); Basophil# 0.05 X10^3/uL; Basophil% 0.6 % (0-1); Eosinophils% 3.4 % (0-5); Hematocrit 38.4 % (40-54); Hemoglobin 13.2 g/dL (13.0-16.5); Lymphocyte # 2.96 X10^3/ul (0.83-4.51); Lymphocyte % 33.5 % (19-41); Mean Corp Hgb Conc 34.4 g/dL (32-36); Mean Corpuscular Hgb 28.3 pg (27.0-32.0); Mean Corpuscular Volume 82.4 fL (80-94); Mean Platelet Vol. 10.6 fl (6.2-12.0); Monocyte# 0.85 X10^3/uL; Monocyte% 9.6 % (0-10); NRBC Flagged by Analyzer 0 % (0-5); Neutrophil # 4.64 X10^3/uL (2.7-7.7); Neutrophil % 52.6 % (47-70); Platelet Count 220 K/mm3 (150-450); RBC Distribution Width CV 13.3 % (11.6-14.6); RBC Distribution Width SD 39.6 fl (35.1-43.9); Red Blood Count 4.66 M/mm3 (4.6-6.2); White Blood Count 8.8 K/mm3 (4.4-11.0)
[2024-05-04 18:49] VITALS: BP 147/82; BP 150/81; BP 162/93; PULSE 60; PULSE 66
[2024-05-04 19:14] LABS: Anion Gap 2 (5-15); BUN 11 mg/dL (7-18); BUN/Creat Ratio 11.9 RATIO (10-20); Calcium,Total 9.2 mg/dL (8.5-10.1); Chloride 108 mmol/L (98-107); Creatinine, Serum 0.93 mg/dL (0.70-1.30); EST Glomerular Filtration Rate 89 mL/min (>60); Est Glom Filt Rate - Afr Amer 107 mL/min (>60); Estimated Creatinine Clearance 93.87 ml/min; Glucose 86 mg/dL (74-106); Potassium 4.1 mmol/L (3.5-5.1); Sodium Level 141 mmol/L (136-145); Troponin-I HS 5 pg/mL (3.0-78.0)
[2024-05-04 19:38] VITALS: BP 151/87; PULSE 62; RESP 18; O2SAT 99
[2024-05-04 21:00] VITALS: BP 144/80; PULSE 62; RESP 18; O2SAT 100
[2024-05-04 21:14] VITALS: BP 144/80; PULSE 62; RESP 18; TEMP 36.8; O2SAT 100
== END 2024-05-04 21:20 | disposition home or self-care (01) ==
PROVIDERS: Emergency Provider Emergency Medicine; PCP Family Medicine; Referring Provider Emergency Medicine; Visit Provider Emergency Medicine
DX: I10 Essential (primary) hypertension (principal); E11.9 Type 2 diabetes mellitus without complications; R42 Dizziness and giddiness; Z95.0 Presence of cardiac pacemaker
CPT/HCPCS: 71046; 80048; 84484; 85025; 93005; 99285